=== PATIENT | male | born 1990 | race African-American/Black ===

== ENCOUNTER 2017-11-22 14:36 | Emergency (ER) | payer SELFPAY ==
[~2017-11-22] VITALS: Ht 165.1 cm; Wt 67.1 kg
[2017-11-22 14:47] VITALS: BP 140/78
[2017-11-22] MEDS ORDERED: HYDR-971 PO (15:39)
[2017-11-22] MEDS ORDERED: PENI500T PO (15:39)
--- NOTE | 2017-11-22 15:39 | PHYS DOC ---
Past Medical History Past Medical History: No Pertinent History Past Surgical History: No Surgical History Alcohol Use: None Drug Use: None Adult General Chief Complaint Chief Complaint: DENTAL PROBLEM HPI HPI Patient is a 27 year old male presents with right lower molar fracture that occurred 3 days ago. He reports the pain has become unbearable. He denies any facial swelling. He denies any fever or chills. Review of Systems Review of Systems Constitutional: Denies fever or chills [] HENT: Reports right lower dental pain fracture Respiratory: Denies cough or shortness of breath [] Cardiovascular: No additional information not addressed in HPI [] Integument: Denies rash or skin lesions [] Neurologic: Denies headache, focal weakness or sensory changes [] All other systems were reviewed and found to be within normal limits, except as documented in this note. Current Medications Current Medications Current Medications Medications (Trade) Dose Ordered Sig/Cong Start Time Stop Time Status Last Admin Dose Admin Acetaminophen/ Hydrocodone Bitart (Lortab 5/325) 1 tab 1X ONCE 11/22/17 16:15 11/22/17 16:16 DC 11/22/17 16:05 1 TAB Bupivacaine HCl (Marcaine 0.5%) 50 ml 1X ONCE 11/22/17 15:15 11/22/17 15:23 DC 11/22/17 15:45 50 ML Lidocaine HCl (Xylocaine-Mpf 1% 2ml Vial) 2 ml 1X ONCE 11/22/17 15:15 11/22/17 15:23 DC 11/22/17 15:45 2 ML Allergies Allergies Allergies Coded Allergies Type Severity Reaction Last Updated Verified No Known Drug Allergies 11/22/17 No Physical Exam Physical Exam Constitutional: Well developed, well nourished, no acute distress, non-toxic appearance. [] HENT: Normocephalic, atraumatic. Fracture to right lower second molar. No facial swelling Eyes: PERRLA, EOMI, conjunctiva normal, no discharge. [] Neck: Normal range of motion, no tenderness, supple, no stridor. [] Cardiovascular:Heart rate regular rhythm, no murmur [] Lungs & Thorax: Bilateral breath sounds clear to auscultation [] Skin: Warm, dry, no erythema, no rash. [] Neurologic: Alert and oriented X 3, normal motor function, normal sensory function, no focal deficits noted. [] Psychologic: Affect normal, judgement normal, mood normal. [] Current Patient Data Vital Signs Vital Signs Date Time Temp Pulse Resp B/P (MAP) Pulse Ox O2 Delivery O2 Flow Rate FiO2 11/22/17 14:47 99.0 76 20 140/78 (98) 96 Room Air 99.0 EKG EKG [] Radiology/Procedures Radiology/Procedures [] Course & Med Decision Making Course & Med Decision Making Pertinent Labs and Imaging studies reviewed. (See chart for details) Attempted dental block 3 without success. Plan: Lortab Rx, Pen-Vee K if infection begins, follow up with dentist, return precautions reviewed Staff Physician Addendum: I was working in the ER during the course of this patient's visit. I was available for consultation as needed, but I was not directly involved in the care of this patient. Dragon Disclaimer Dragon Disclaimer This electronic medical record was generated, in whole or in part, using a voice recognition dictation system. Additional Procedures Progress Dental block -- 1% lidocaine and 0.5% marcaine injected inferior alveolar without relief of symptoms. Departure Departure Impression: Primary Impression: Tooth fracture Disposition: HOME, SELF-CARE Referrals: NO PCP (PCP) Patient Instructions: Dental Fracture Scripts Penicillin V Potassium (PENICILLIN V POTASSIUM) 500 Mg Tablet 1 TAB PO QID, #40 TAB Prov: KURT CHEN APRN 11/22/17 Hydrocodone/Apap 5-325 (NORCO 5-325 TABLET) 1 Each Tablet 1 TAB PO PRN Q6HRS PRN for PAIN, #15 TAB 0 Refills Prov: KURT CHEN APRN 11/22/17 Problem Qualifiers Primary Impression: Tooth fracture Encounter type: initial encounter Fracture type: closed Qualified Codes: S02.5XXA - Fracture of tooth (traumatic), initial encounter for closed fracture KURT CHEN APRN Nov 22, 2017 15:39 LANCE PELAEZ MD Nov 23, 2017 06:27
[2017-11-22] MEDS: LIDOCAINE 1% PF 2 ML VIAL. INJ ONE (15:45)
[2017-11-22] MEDS: BUPIVACAINE 0.5% 50 ML VIAL. INFIL ONE (15:45)
[2017-11-22] MEDS: HYDROcodone/APAP 5/325MG 1 TAB TABLET PO ONE (16:05)
== END 2017-11-22 15:47 | disposition home or self-care (01) ==
LOC: ER 14:36
DX: S02.5XXA Fracture of tooth (traumatic), initial encounter for closed fracture (principal); X58.XXXA Exposure to other specified factors, initial encounter; Y93.89 Activity, other specified; Y92.89 Other specified places as the place of occurrence of the external cause; Y99.8 Other external cause status
CPT/HCPCS: 64400; 99284; J3490

== ENCOUNTER 2018-10-02 19:14 | Emergency (ER) | payer OTHER ==
[~2018-10-02] VITALS: Ht 165.1 cm; Wt 70.3 kg
[~2018-10-02 19:14] MED LIST: HYDR-3164 PO; PENI500T PO
[2018-10-02 20:00] VITALS: BP 130/67
--- NOTE | 2018-10-02 20:04 | PHYS DOC ---
Past Medical History Past Medical History: No Pertinent History Past Surgical History: No Surgical History Alcohol Use: None Drug Use: None Adult General Chief Complaint Chief Complaint: LACERATION/AVULSION [facility] HPI Patient is a 27 year old right-handed male who presents with complaining of right middle finger injury. Patient states he was using mine wedge sawyer and cut his right middle finger tip through the nail bed and rated his pain 10 over 10. Patient denies other injuries and focal neurodeficit. Patient had tetanus summarization 1 year ago. Review of Systems Review of Systems Constitutional: Denies fever or chills [] Eyes: Denies change in visual acuity, redness, or eye pain [] HENT: Denies nasal congestion or sore throat [] Respiratory: Denies cough or shortness of breath [] Cardiovascular: No additional information not addressed in HPI [] GI: Denies abdominal pain, nausea, vomiting, bloody stools or diarrhea [] : Denies dysuria or hematuria [] Musculoskeletal: Denies back pain, reports joint pain [] Integument: Denies rash or skin lesions [] Neurologic: Denies headache, focal weakness or sensory changes [] Endocrine: Denies polyuria or polydipsia [] All other systems were reviewed and found to be within normal limits, except as documented in this note. Current Medications Current Medications Current Medications Medications (Trade) Dose Ordered Sig/Cong Start Time Stop Time Status Last Admin Dose Admin Acetaminophen/ Hydrocodone Bitart (Lortab 5/325) 1 tab 1X ONCE 10/02/18 20:15 10/02/18 20:16 DC 10/02/18 20:14 1 TAB Allergies Allergies Allergies Coded Allergies Type Severity Reaction Last Updated Verified No Known Drug Allergies 11/22/17 No Physical Exam Physical Exam PHYSICAL EXAM: CONSTITUTIONAL: Well developed, well nourished mild distress HEAD: normocephalic, atraumatic EENT: PERRL, EOMI. Conjunctivae normal color, sclerae non-icteric; moist mucous membranes. NECK: Supple, non-tender; no meningismus. LUNGS: Lungs CTA, breathing even and unlabored. Normal air movement. HEART: Regular rate and rhythm, no murmur CHEST: No deformity; non-tender EXTREM: 1 cm transverse laceration of right middle finger on proximal part of the nailbed without active bleeding. Normal ROM; no deformity, no calf tenderness. Normal pulses palpable in all extremities. There is no pedal edema. SKIN: No rash; no diaphoresis NEURO: Alert; normal speech and cognition; CN's grossly intact; strength grossly intact without focal deficit. BACK: No CVA TTP. EKG EKG [] Radiology/Procedures Radiology/Procedures X-ray of right middle finger interpreted by me and showed nondisplaced transverse distal phalanx fracture. Course & Med Decision Making Course & Med Decision Making Pertinent Imaging studies reviewed. (See chart for details) Evaluation of patient in ER showed 27-year-old male patient with injury to right fifth finger with open fracture of distal phalanx and nail bed laceration without needs for placement of suture. Nonadhesive dressing was applied and finger aluminium foam splint was placed by HELP DESK REPRESENTATIVE. Patient was advised to follow- up with [facility] physician and take antibiotic and pain medication as advised. Dragon Disclaimer Dragon Disclaimer This electronic medical record was generated, in whole or in part, using a voice recognition dictation system. Departure Departure Impression: Primary Impression: Open fracture of finger, distal phalanx Disposition: HOME, SELF-CARE (at 2027) Condition: IMPROVED Referrals: NO PCP (PCP) JASMINE GUERRERO MD Patient Instructions: Finger Fracture (Phalangeal)-SportsMed, Nail Bed Injury Additional Instructions: Keep wound clean and dry Follow-up with [facility] orth[facility] physician in 2 or 3 days Follow-up with your primary care physician in 3-5 days Return to ER if not getting better Scripts Hydrocodone/Apap 5-325 (NORCO 5-325 TABLET) 1 Each Tablet 1 TAB PO PRN Q6HRS PRN for PAIN, #4 TAB 0 Refills Prov: BRIANNA GAMBLE MD 10/02/18 Cephalexin (KEFLEX) 500 Mg Capsule 2 CAP PO Q12HR, #40 CAP Prov: BRIANNA GAMBLE MD 10/02/18 Ibuprofen (IBUPROFEN) 800 Mg Tablet 800 MG PO PRN Q8HRS PRN for INFLAMMATION, #20 TAB Prov: BRIANNA GAMBLE MD 10/02/18 Problem Qualifiers Primary Impression: Open fracture of finger, distal phalanx Encounter type: initial encounter Finger: middle finger Fracture alignment: nondisplaced Laterality: right Qualified Codes: S62.662B - Nondisplaced fracture of distal phalanx of right middle finger, initial encounter for open fracture BRIANNA GAMBLE MD Oct 02, 2018 20:04
[2018-10-02] MEDS ORDERED: HYDROcodone/APAP 5/325MG 1 TAB TABLET PO ONE (20:15)
[2018-10-02] MEDS ORDERED: HYDR-3164 PO (20:31)
[2018-10-02] MEDS ORDERED: CEPH-264 PO (20:31)
[2018-10-02] MEDS ORDERED: IBUP-1060 PO (20:31)
--- NOTE | 2018-10-02 20:49 | RAD ---
Exam: Right finger radiographs INDICATION: Injury TECHNIQUE: Frontal view of the hand with oblique and lateral views of the third digit Comparisons: None FINDINGS: There is a obliquely oriented mildly displaced fracture through the distal phalanx of the third digit. No apparent intra-articular extension. No other fractures are seen. Mild soft tissue swelling surrounding the digit. Joint spaces are well-maintained. IMPRESSION: Obliquely oriented mildly displaced fractures of the distal phalanx of the third digit. Electronically signed by: Jackie Medina MD (10/02/2018 8:46 PM) [facility]
== END 2018-10-02 20:58 | disposition home or self-care (01) ==
LOC: ER 19:14
DX: S62.662B Nondisplaced fracture of distal phalanx of right middle finger, initial encounter for open fracture (principal); Y93.89 Activity, other specified; W29.3XXA Contact with powered garden and outdoor hand tools and machinery, initial encounter; Y92.89 Other specified places as the place of occurrence of the external cause; Y99.8 Other external cause status
CPT/HCPCS: 29130; 73140; 99284